=== PATIENT | female | born 2000 | race Two or more races ===

== ENCOUNTER 2021-10-19 22:10 | Emergency (ER) | payer OTHER ==
[2021-10-19 22:24] VITALS: TEMP 98.2; BMI 17.4
[2021-10-19] MEDS ORDERED: MAG HYDROX/AL HYDROX/SIMETH -MYLANTA- ORAL SUSPENSION PO ONE (23:05)
[2021-10-19] MEDS ORDERED: FAMOTIDINE 20 MG/50 ML IVPB 20 MG/50 ML MG IVPB ONE ×2 (23:05→23:12)
[2021-10-19] MEDS ORDERED: ONDANSETRON 4 MG/2 ML VIAL IVPUSH ONE (23:05)
[2021-10-19] MEDS ORDERED: SODIUM CHLORIDE 1,000 ML IV STA (23:05)
[2021-10-19] MEDS ORDERED: MAG HYDROX/AL HYDROX/SIMETH 30 ML UNIT-DOSE CUP ONE (23:11)
[2021-10-19] MEDS ORDERED: ONDANSETRON 4 MG/2 ML VIAL ONE (23:12)
[2021-10-19 23:17] LABS: BASO % 0.4 % (0-2.0); HEMATOCRIT 41.2 % (32.4-45.2); HEMOGLOBIN 14.1 GM/dL (10.7-15.3); MCH 30.2 pg (25.7-33.7); MCHC 34.2 g/dl (32.0-36.0); MEAN CELL VOLUME 88.3 fl (80-96); MONO % 8.2 % (3.8-10.2); NEUT % 88.4 % (42.8-82.8); PLATELET COUNT 237 10^3/uL (134-434); RBC 4.67 M/mm3 (3.60-5.2); RDW 13.2 % (11.6-15.6); WHITE BLOOD COUNT 9.4 K/mm3 (4.0-10.0)
[2021-10-19 23:39] LABS: BLOOD UREA NITROGEN 14.5 mg/dL (7-18); CALCIUM 9.5 mg/dL (8.5-10.1)
[2021-10-19 23:40] LABS: ALBUMIN 5.1 g/dl (3.4-5.0)
[2021-10-19 23:42] LABS: CREATININE 0.7 mg/dL (0.55-1.3)
[2021-10-19 23:44] LABS: BILIRUBIN,TOTAL 0.8 mg/dL (0.2-1); TOT PROT 8.4 g/dl (6.4-8.2)
[2021-10-20] MEDS ORDERED: SODIUM CHLORIDE 1,000 ML IV STA (00:02)
[2021-10-20] MEDS ORDERED: ACETAMINOPHEN 1000 MG/100 ML BAG IVPB ONE (00:13)
[2021-10-20] MEDS ORDERED: ACETAMINOPHEN INJECTION 100 ML IVPB ONE (00:59)
[2021-10-20 01:10] LABS: URINE APPEARANCE CLEAR; URINE BILIRUBIN NEGATIVE (NEGATIVE); URINE COLOR YELLOW; URINE GLUCOSE (UA) NEGATIVE (NEGATIVE); URINE KETONE 2+ (NEGATIVE); URINE LEUK ESTERASE NEGATIVE (NEGATIVE); URINE NITRITE NEGATIVE (NEGATIVE); URINE PROTEIN TRACE (NEGATIVE); URINE UROBILINOGEN 0.2 mg/dL (0.2-1.0)
[2021-10-20 02:41] VITALS: BP 97/46; PULSE 121
== END 2021-10-20 02:54 | disposition home or self-care (01) ==
LOC: JER 22:10
PROC: 3E0333Z Introduction of Anti-inflammatory into Peripheral Vein, Percutaneous Approach (ICD-10-PCS; principal; 2021-10-19)
PROC: 3E033GC Introduction of Other Therapeutic Substance into Peripheral Vein, Percutaneous Approach (ICD-10-PCS; 2021-10-19)
PROC: 3E0337Z Introduction of Electrolytic and Water Balance Substance into Peripheral Vein, Percutaneous Approach (ICD-10-PCS; 2021-10-19)
PROC: 3E0337Z Introduction of Electrolytic and Water Balance Substance into Peripheral Vein, Percutaneous Approach (ICD-10-PCS; 2021-10-19)
DX: R11.2 Nausea with vomiting, unspecified (principal)
CPT/HCPCS: 36415; 80053; 81003; 83690; 84443; 85025; 86850; 86900; 86901; 87086; 93005; 93010; 96361; 96374; 96375; 99284-25

== ENCOUNTER 2025-05-22 11:01 | Inpatient (IN) | payer OTHER ==
[2025-05-22] MEDS: CEFTRIAXONE 1 GM in DEXTROSE 5%-WATER - 100 ML IVPB ONE (12:01)
[2025-05-22] MEDS: SODIUM CHLORIDE 0.9% 1000 ML INFUS.BAG IV STA (12:01)
[2025-05-22] MEDS ORDERED: CEFTRIAXONE 1 GM/50 ML BAG ONE (12:02)
[2025-05-22 12:05] LABS: ABSOLUTE IMMATURE GRANULOCYTES 0.05 x10^3/uL (0.0-0.031); BASOPHILS # 0.03 x10^3/uL (0.01-0.08); EOSINOPHIL % 0.0 % (0.7-5.8); EOSINOPHILS # 0.00 x10^3/uL (0.04-0.36); MCHC 33.1 g/dl (32.2-35.5); MEAN CELL VOLUME 89.7 fl (79.4-94.8); MEAN PLT VOLUME 12.2 fl (9.4-12.3); MONOCYTE # 1.07 x10^3/uL (0.24-0.86); MONOCYTE % 6.9 % (4.7-12.5); RDW 12.8 % (12.1-16.5)
[2025-05-22] MEDS: ACETAMINOPHEN 1000 MG/100 ML BAG IVPB ONE (12:09)
[2025-05-22 12:13] LABS: INR 1.15 (0.83-1.09); PROTHROMBIN TIME (PATIENT) 12.7 SEC (9.7-13.0)
[2025-05-22 12:15] LABS: ACTIVATED PTT 31.9 SECONDS (25.2-36.5)
[2025-05-22] MEDS ORDERED: ACETAMINOPHEN INJECTION 100 ML ONE (12:18)
[2025-05-22 12:22] LABS: EPITHELIAL CELLS FEW /hpf
[2025-05-22 12:37] LABS: GLUCOSE,RANDOM 89.0 mg/dL (74-106); TOT PROT 8.5 g/dl (6.4-8.2)
[2025-05-22 12:38] LABS: CO2 22.0 mmol/L (21-32)
[2025-05-22 12:40] LABS: ALK PHOS 67.0 U/L (40-150)
[2025-05-22 12:43] LABS: CREATININE 0.46 mg/dL (0.55-1.3); SGOT/AST 21.0 U/L (5-34); SGPT/ALT 21.0 U/L (0-55)
[2025-05-22 13:02] LABS: HCV DIAGNOSTIC IN-HOUSE W/RFLX NON-REACTIVE (NONREACTIVE); HIV INTERPRETATION NEGATIVE (NEGATIVE)
[2025-05-22] MEDS ORDERED: ONDANSETRON 4 MG/2 ML VIAL ONE ×2 (14:02→17:57)
[2025-05-22] MEDS: ONDANSETRON 4 MG/2 ML VIAL IVPUSH ONE (14:08)
[2025-05-22] MEDS: SODIUM CHLORIDE 1,000 ML IV SCH (17:17)
[2025-05-22] MEDS: ONDANSETRON 4 MG/2 ML VIAL IVPUSH PRN (17:55)
[2025-05-22] MEDS: ACETAMINOPHEN 325 MG TABLET (FP) PO PRN (17:56)
[2025-05-22] MEDS ORDERED: ACETAMINOPHEN 325 MG TABLET (FP) ONE (17:57)
[2025-05-22 20:51] VITALS: BMI 17.6
[2025-05-23] MEDS: LACTATED RINGERS SOLUTION 1,000 ML/1,000 ML INFUS.BAG IV STA (08:51)
[2025-05-23 09:05] LABS: ABSOLUTE IMMATURE GRANULOCYTES 0.07 x10^3/uL (0.0-0.031); BASOPHILS # 0.02 x10^3/uL (0.01-0.08); EOSINOPHIL % 0.1 % (0.7-5.8); EOSINOPHILS # 0.01 x10^3/uL (0.04-0.36); MCHC 32.1 g/dl (32.2-35.5); MEAN CELL VOLUME 92.0 fl (79.4-94.8); MEAN PLT VOLUME 12.0 fl (9.4-12.3); MONOCYTE # 1.47 x10^3/uL (0.24-0.86); MONOCYTE % 11.7 % (4.7-12.5); RDW 12.7 % (12.1-16.5)
[2025-05-23] MEDS ORDERED: CEFTRIAXONE 1 GM in DEXTROSE 5%-WATER - 50 ML IVPB SCH (10:00)
[2025-05-23] MEDS: CEFTRIAXONE 2 GM in DEXTROSE 5%-WATER 100 ML IVPB SCH (10:16)
[2025-05-23 10:22] LABS: GLUCOSE,RANDOM 80.0 mg/dL (74-106); TOT PROT 6.8 g/dl (6.4-8.2)
[2025-05-23 10:23] LABS: CO2 19.0 mmol/L (21-32)
[2025-05-23 10:25] LABS: ALK PHOS 55.0 U/L (40-150)
[2025-05-23 10:27] LABS: SGOT/AST 14.0 U/L (5-34); SGPT/ALT 11.0 U/L (0-55)
[2025-05-23 10:28] LABS: CREATININE 0.4 mg/dL (0.55-1.3)
[2025-05-23] MEDS ORDERED: KCL 10 MEQ IVPB 10 MEQ/100 ML INFUS.BAG IVPB SCH (11:15)
[2025-05-23] MEDS: morphine CARPU-JECT 2 MG/1 ML DISP.SYRIN IVPUSH PRN (11:49)
[2025-05-23] MEDS: LACTATED RINGERS SOLUTION 1,000 ML/1,000 ML INFUS.BAG IV SCH (11:49)
[2025-05-23] MEDS: METOCLOPRAMIDE HCL INJECTION 10 MG/2 ML VIAL IVPUSH ONE (12:27)
[2025-05-23] MEDS: POTASSIUM PHOSPHATE 15 MM in SODIUM CHLORIDE 250 ML IVPB ONE (13:26)
[2025-05-23] MEDS: ONDANSETRON 4 MG/2 ML VIAL IVPUSH ONE (16:02)
[2025-05-23] MEDS: ACETAMINOPHEN 1000 MG/100 ML BAG IVPB PRN (22:15)
[2025-05-24 09:45] LABS: MCHC 32.5 g/dl (32.2-35.5); MEAN CELL VOLUME 89.0 fl (79.4-94.8); MEAN PLT VOLUME 11.4 fl (9.4-12.3); RDW 12.3 % (12.1-16.5)
[2025-05-24 10:09] LABS: GLUCOSE,RANDOM 91.0 mg/dL (74-106)
[2025-05-24 10:10] LABS: TOT PROT 6.1 g/dl (6.4-8.2)
[2025-05-24 10:11] LABS: CO2 19.0 mmol/L (21-32)
[2025-05-24 10:13] LABS: ALK PHOS 48.0 U/L (40-150)
[2025-05-24 10:15] LABS: SGOT/AST 13.0 U/L (5-34); SGPT/ALT 9.0 U/L (0-55)
[2025-05-24 10:16] LABS: CREATININE 0.38 mg/dL (0.55-1.3)
[2025-05-24] MEDS: MAGNESIUM OXIDE 400 MG TABLET (FP) PO ONE (12:18)
[2025-05-25 05:00] VITALS: TEMP 98.6
[2025-05-25 10:24] LABS: MCHC 33.4 g/dl (32.2-35.5); MEAN CELL VOLUME 88.0 fl (79.4-94.8); MEAN PLT VOLUME 11.2 fl (9.4-12.3); RDW 12.1 % (12.1-16.5)
[2025-05-25 10:40] LABS: GLUCOSE,RANDOM 82.0 mg/dL (74-106); TOT PROT 6.4 g/dl (6.4-8.2)
[2025-05-25 10:41] LABS: CO2 21.0 mmol/L (21-32)
[2025-05-25 10:43] LABS: ALK PHOS 51.0 U/L (40-150)
[2025-05-25 10:46] LABS: CREATININE 0.37 mg/dL (0.55-1.3); SGOT/AST 12.0 U/L (5-34); SGPT/ALT 6.0 U/L (0-55)
[2025-05-25 13:42] VITALS: BP 116/76; PULSE 100; RESP 16
== END 2025-05-25 13:43 | disposition home or self-care (01) | DRG 463 ==
LOC: JER 11:01 → JERBED 15:25 → J5S 19:09 → OBSVTOIN 05-23 08:36 → J5S 05-23 13:25
PROVIDERS: ADMIT Internal Medicine; ATTEND Student in an Organized Health Care Education/Training Program
DX: N10 Acute pyelonephritis (principal); N83.201 Unspecified ovarian cyst, right side; E83.42 Hypomagnesemia; E83.39 Other disorders of phosphorus metabolism
CPT/HCPCS: 36415; 71046-TC-FY; 74177-TC; 76856-TC; 80053; 81003; 81015; 83605; 83735; 84100; 84484; 84703; 85025; 85027; 85610; 85730; 86803; 86850; 86900; 86901; 87040; 87086; 87389; 87637-QW; 93005; 93010; 99285-25; G0378; Q9967